=== PATIENT | male | born 1960 | race Caucasian/White ===

== ENCOUNTER 2022-12-11 11:09 | Emergency (ER) | payer BC, OTHER | END 2022-12-11 12:08 | disposition home or self-care (01) | LOC: BURERS 11:09 | DX: S43.401A Unspecified sprain of right shoulder joint, initial encounter (principal); K29.70 Gastritis, unspecified, without bleeding; I10 Essential (primary) hypertension; W19.XXXA Unspecified fall, initial encounter | CPT/HCPCS: 71045 ==